=== PATIENT | male | born 1995 | race Caucasian/White ===

== ENCOUNTER 2016-09-13 14:24 | Emergency (ER) | payer OTHER ==
[~2016-09-13] VITALS: Wt 94.5 kg
--- NOTE | 2016-09-13 15:24 | RADRPT ---
PROCEDURE: XR Hand. CLINICAL INDICATION: Right hand pain. Trauma to the fourth metacarpal-phalangeal joint space. TECHNIQUE: Three views of the right hand were obtained. COMPARISON: No prior studies are available for comparison. FINDINGS: The bones of the hand appear intact, with no evidence of fracture, dislocation, or subluxation. The joint spaces are preserved. Bone mineralization is normal. No significant soft tissue swelling is se en. The right fourth digit is intact. The right fourth metacarpal phalangeal joint space is unremar kable. IMPRESSION: 1. Unremarkable right hand x-ray series. 2. No acute fracture or dislocation is seen. RPTAT: PP .Gopi Chow MD, Date Time Electronically viewed and signed by .Gopi Chow MD, on 09/13/2016 15:23 .B/
[2016-09-13] MEDS ORDERED: IBUP-1542 PO (15:48)
--- NOTE | 2016-09-13 15:51 | ERD ---
ER Documentation Chief Complaint Date/Time DATE: 09/13/16 TIME: 15:50 Chief Complaint RIGHT HAND INJURY X1 DAY HPI 29-year-old male complains of right hand pain after hitting a wall in anger last night. He is some bruising and swelling on the right fourth and fifth metacarpal area but minimal pain. He has no restricted range of motion weakness. ROS All systems reviewed and are negative except as per history of present illness. Medications Home Meds Active Scripts Ibuprofen* (Motrin*) 600 Mg Tab, 600 MG PO Q6, #15 TAB Prov:VIVIENNE JAVIER MD 09/13/16 Physical Exam Vitals Vital Signs Date Time Temp Pulse Resp B/P Pulse Ox O2 Delivery O2 Flow Rate FiO2 09/13/16 14:32 97.4 70 18 159/92 97 Physical Exam Const: [] Alert, [id number]. Head: Atraumatic Eyes: Normal Conjunctiva ENT: Normal External Ears, Nose and Mouth. Neck: Full range of motion..~ No meningismus. Resp: Clear to auscultation bilaterally Cardio: Regular rate and rhythm, no murmurs Abd: Soft, non tender, non distended. Normal bowel sounds Skin: No petechiae or rashes Back: No midline or flank tenderness Ext: No cyanosis, or edema. There is some swelling and bruising with no significant appreciable tenderness on the right fourth and fifth metacarpal area and proximal fourth digit. There is no restricted range of motion or weakness or signs of tendon or neurologic deficit. Neur: Awake and alert Psych: Normal Mood and Affect Procedures/MDM X-ray right hand 3V interpreted by me: Scaphoid: Normal Bones: No fracture Joints: No dislocation Foreign body: None. Impression-normal right hand x-ray Patient presents with signs and symptoms of right hand contusion. Suspicion is low for fracture as he has minimal pain, only bruising. He will be discharged home with prescription of ibuprofen and instructions to follow-up with PCP and possibly orthopedics for persistent pain. He should return sooner for fevers, redness, new or worsening symptoms. Departure Diagnosis: Primary Impression: Contusion of hand Encounter type: initial encounter Laterality: right Qualified Code: S60.221A - Contusion of right hand, initial encounter Condition: Stable Patient Instructions: Contusion, Hand Additional Instructions: X-ray read as normal. Recheck for new or worsening symptoms with primary care doctor next week. VIVIENNE JAVIER MD Sep 13, 2016 15:51
== END 2016-09-13 16:16 | disposition home or self-care (01) ==
LOC: FTE 14:24
DX: S60.221A Contusion of right hand, initial encounter (principal); W22.8XXA Striking against or struck by other objects, initial encounter; Y92.9 Unspecified place or not applicable
CPT/HCPCS: 73130; Z7502